=== PATIENT | female | born 1965 | race Caucasian/White ===

== ENCOUNTER → 2020-08-02 16:35 | Outpatient (CLI) | payer OTHER, SELFPAY ==
--- NOTE | 2020-08-02 | DI.MRI.S_ITS ---
PROCEDURE: MR KNEE LT WO CON INDICATIONS: pain in left knee TECHNIQUE: Noncontrast sagittal PD fast spin echo and T2 fast spin echo with fat saturation, sagittal 3-D FLASH with fat saturation; coronal T1 spin echo and PD fast spin echo with fat saturation, and axial PD fast spin echo with fat saturation through the knee. COMPARISON: [facility] [place], CR, XR KNEE ARTHRITIC SERIES BI, 07/17/2020, 16:28. FINDINGS: Image quality: Excellent. Menisci: Intrasubstance degeneration is seen in the medial meniscus without a discrete tear. The lateral meniscus is intact. There is no significant meniscal extrusion. The medial and lateral menisci demonstrate normal morphology and internal signal. The meniscal root ligaments appear intact. Cruciate ligaments: The anterior and posterior cruciate ligaments appear intact. Mild traction edema is seen in the central tibial plateau at the anterior cruciate ligament insertion. Medial structures: Mild thickening of the proximal medial collateral ligament is most likely related to a remote prior sprain. The semimembranosus tendon insertions and meniscocapsular junction appear intact. Visualized portions of the pes anserinus tendons appear normal. No abnormal bursal fluid. Lateral structures: The lateral collateral ligament, long and short heads of the biceps femoris tendon appear intact. The popliteus tendon appears intact. No signs of posterolateral corner injury. Iliotibial band appears normal. Anterior structures: The quadriceps and patellar tendons appear intact. Patellar alignment is normal. No femoral trochlear dysplasia or ventral trochlear prominence. No edema in the infrapatellar fat pad. Bones and cartilage: No bone marrow contusions or fractures. High-grade and full-thickness cartilage loss is seen in the central weight-bearing portion of the medial femorotibial compartment with subchondral cystic changes and small marginal osteophytes. The lateral compartment articular cartilage is grossly intact. Full-thickness cartilage loss is seen in the medial femoral trochlea and trochlear groove with subchondral osteophyte formation. Deep cartilage fissuring and mild delamination are seen in the medial patellar facet. Joint space: There is a moderate joint effusion. A trace medial popliteal cyst is seen. Fluid is seen tracking along the popliteus tendon sheath. Nonspecific prepatellar pretibial subcutaneous edema is noted. IMPRESSION: 1. Full-thickness cartilage loss is seen in the medial femorotibial compartment with subchondral edema and marginal osteophyte formation. Additional area of full-thickness cartilage loss is seen in the anterior compartment. 2. Intrasubstance degeneration within the medial meniscus without a discrete meniscal tear. 3. Chronic low-grade sprain of the proximal medial collateral ligament. 4. Moderate joint effusion. Dictated by: Pablo mAin M.D. on 08/02/2020 at 17:34 Approved by: Pablo Amin M.D. on 08/02/2020 at 17:41
== END ==
PROVIDERS: PCP Physician Assistant; Referring Provider Orthopaedic Surgery; Visit Provider Orthopaedic Surgery
DX: M25.562 Pain in left knee (principal); S83.412A Sprain of medial collateral ligament of left knee, initial encounter; M25.462 Effusion, left knee
CPT/HCPCS: 73721